=== PATIENT | female | born 1940 | race African-American/Black ===

== ENCOUNTER 2016-08-18 18:05 | Observation (INO) | payer OTHER, MEDICAID ==
[~2016-08-18] VITALS: Ht 152.4 cm; Wt 40.8 kg
[~2016-08-18 18:05] MED LIST: ATOR80TA; DULO20CA; GABA-494 PO; HYDR-4663; ISOSPOW2 PO; LEVO100T81; PLAVIX PO; RISP1TAB60; TEMA15CA; VALS160T51
[2016-08-18] MEDS ORDERED: SUCCINYLCHOLINE CHLORIDE 20 MG/ML 10ML VIAL IV ONE ×2 (18:18→18:24)
[2016-08-18] MEDS ORDERED: ETOMIDATE (2MG/ML) 20ML VIAL IV ONE (18:18)
[2016-08-18] MEDS ORDERED: DEXTROSE 50% SYRINGE 50 ML IV ONE (18:30)
[2016-08-18] MEDS ORDERED: DEXTROSE (50%) 50ML SYRG IV ONE (18:36)
[2016-08-18] MEDS ORDERED: SODIUM CHLORIDE 0.9% 1,000 ML IVB ONE (18:36)
[2016-08-18] MEDS ORDERED: MORPHINE SULFATE 4 MG/ML SYRG IV ONE ×2 (19:30→19:40)
[2016-08-18 19:31] VITALS: BP 128/104
== END 2016-08-19 01:52 | disposition expired | DRG 948 ==
LOC: EDBD 18:05 → ER 18:08 → OVERFLOW 18:37 → ER 08-19 01:52
PROVIDERS: ADMIT Family Medicine; ATTEND Family Medicine
DX: R41.82 Altered mental status, unspecified (principal); R40.2431 Glasgow coma scale score 3-8, in the field [EMT or ambulance]; I25.10 Atherosclerotic heart disease of native coronary artery without angina pectoris; I10 Essential (primary) hypertension; E03.9 Hypothyroidism, unspecified; J44.9 Chronic obstructive pulmonary disease, unspecified; I73.9 Peripheral vascular disease, unspecified; E11.9 Type 2 diabetes mellitus without complications; F17.210 Nicotine dependence, cigarettes, uncomplicated; Z95.1 Presence of aortocoronary bypass graft; Z51.5 Encounter for palliative care
CPT/HCPCS: 31500; 82962; 94002; 96374; 96375; 99285; G0378; J0330; J2270; J7042